=== PATIENT | male | born 1945 | race Caucasian/White ===

== ENCOUNTER 2016-06-06 09:54 | Emergency (ER) | payer OTHER, MEDICARE ==
[~2016-06-06] VITALS: Ht 175.3 cm; Wt 108.0 kg
[~2016-06-06 09:54] MED LIST: CARDURA8 M1 PO; CIPRO 500MG (E500 MG PO; FLEXERIL10 MG PO; FLOMAX(MONOGRA0.4 MG PO; OMEPRAZOLE20 M2 PO; PERCOCET 325 MG1 TA2 PO; SYNTHROID150 MCG PO; TAMIFLU 75MG75 MG PO; TESSALON PERLE100 MG PO
--- NOTE | 2016-06-06 09:57 | ED CARDIAC/CP/PALPITATIONS ---
History of Present Illness General Chief Complaint: Chest Pain Stated Complaint: CP/ HX OF LUNG MASS Source: patient, family Exam Limitations: no limitations Vital Signs & Intake/Output Vital Signs & Intake/Output Vital Signs Date Time Temp Pulse Resp B/P Pulse O2 O2 Flow FiO2 Ox Delivery Rate 06/06 1147 98.7 06/06 1020 96 06/06 1011 98.7 86 18 161/102 97 Room Air 06/06 1010 97 Allergies Coded Allergies: Iodinated Contrast Media - Oral and (Intermediate, SHELLFISH CROSS-SENSITIVITY 06/06/16) shellfish derived (Intermediate, CHOKING 06/06/16) Penicillins (UNKNOWN 06/06/16) Sulfa (Sulfonamide Antibiotics) (Intermediate, DYSURIA 06/06/16) Uncoded Allergies: ENVIROMENTAL (09/17/10) Reconcile Medications Albuterol Sulfate 2.5 MG/3 ML (0.083 %) VIAL.NEB 1 Vial INH/PORTER Q4P PRN DYSPNEA Benzonatate (Tessalon Perle) 100 MG SGL 1 TAB PO TID PRN COUGH Benzonatate 200 MG CAPSULE 1 CAP PO TID PRN COUGH CYCLOBENZAPRINE HCL (Flexeril) 10 MG TABLET 1 TAB PO Q8P PRN PAIN Doxazosin Mesylate 8 MG TABLET 1 TAB PO DAILY BLADDER (Reported) Hydrocodone/Acetaminophen (Vicodin 5-300 MG Tablet) 5 MG-300 MG TABLET 1 TAB PO BID PRN BREAKTHROUGH PAIN Hydrocodone/Acetaminophen (Vicodin 5-300 MG Tablet) 5 MG-300 MG TABLET 1-2 TAB PO Q6 PRN pain Hydrocodone/Acetaminophen (Vicodin 5-300 MG Tablet) 5 MG-300 MG TABLET 1 TAB PO Q6 PRN pain Levofloxacin (Levaquin) 750 MG TABLET 1 TAB PO DAILY BRONCHIECTASIS Levothyroxine Sodium (Synthroid) 0.125 MG TAB 1 TAB PO DAILY AC THYROID ( Reported) Methylprednisolone. (Medrol) 4 MG TAB.DS.PK 1 DP PO AD INFLAMMATION 6 on day 1 then reduce by one tablet daily until gone Omeprazole 40 MG CAPSULE.DR 1 CAP PO DAILY GI (Reported) Oseltamivir Phosphate (Tamiflu 75MG) 75 MG CAP 1 TAB PO BID INFLUENZA OXYCODONE HCL/ACETAMINOPHEN (Percocet 5-325 MG Tablet) 325 MG/5 MG TAB 1 TAB PO Q4-6 PRN PRN PAIN Prednisone 10 MG TABLET 0 PO DAILY BRONCHIECTASIS DAY 1-3: 6 TABS PO QD DAY 4-6: 5 TABS PO QD DAY 7-9: 4 TABS PO QD DAY 10-12: 3 TABS PO QD DAY 13-15: 2 TABS PO QD DAY 16-18: 1 TAB PO QD Robitussin AC (Guaifenesin-Codeine Syrup) 200 MG-20 MG/10 ML LIQUID 10 ML PO Q6 PRN COUGH Tamsulosin Hydrochloride (Flomax) 0.4 MG CAP.ER.24H 1 CAP PO DAILY URINARY RETENTION Triage Nurses Notes Reviewed? yes HPI: This is a 71-year-old male with history of Hamlin's esophagus, enlarged prostate and hypertension presents to the ER for chief complaint of upper respiratory symptoms since last week. He is status post a course of antibiotics and he has been using his inhaler he states without relief. He still has productive yellow sputum. Positive subjective temp. Today he had a CAT scan done and IV [place] because they saw a possibility of a upper lobe mass on chest x -ray. He is post to follow up with Dr. Manuel for the first time outpatient. He presents here because he is not feeling any better and doesn't know if he needs another antibiotic. He complains of right parasternal pain when coughing. He states there is no relief with Robitussin-AC. Past History Medical History Any Pertinent Medical History? see below for history Cardiovascular: hypertension Gastrointestinal: BARRETTS ESOPHAGUS Renal: BPH Endocrine: hypoglycemia Other Medical Hx: BPH Surgical History Surgical History: non-contributory Psychosocial History Who do you live with Spouse Services at Home None What is your primary language South Korean Family History Hx Contributory? No Review of Systems Review of Systems Constitutional: Reports: chills, fever (SUBJECTVE). EENTM: Reports: no symptoms. Respiratory: Reports: cough, short of breath, sputum production. Cardiovascular: Reports: chest pain, peripheral edema. Denies: palpitations. GI: Denies: abdominal pain, nausea, vomiting. Genitourinary: Reports: no symptoms. Musculoskeletal: Reports: no symptoms. Skin: Reports: no symptoms. Neurological/Psychological: Reports: no symptoms. Hematologic/Endocrine: Denies: bruising, bleeding, polyuria, polydipsia. Immunologic/Allergic: Denies: splenectomy. All Other Systems: Reviewed and Negative Physical Exam Physical Exam General Appearance: well developed/nourished, alert, awake, anxious, mild distress, obese Eyes: Bilateral: normal appearance, PERRL, EOMI. Ears, Nose, Throat: normal pharynx, normal ENT inspection, hearing grossly normal Neck: normal inspection, supple, full range of motion Respiratory: normal breath sounds, decreased breath sounds Cardiovascular: regular rate/rhythm Peripheral Pulses: 2+ radial (R), 2+ radial (L) Gastrointestinal: soft, non-tender Neurologic/Psych: awake, alert, oriented x 3 Skin: intact, normal color, warm/dry Core Measures ACS in differential dx? No Severe Sepsis Present: No Septic Shock Present: No Progress Differential Diagnosis: AMI, pneumothorax, pulmonary embolism, PNEUMONIA, LUNG MASS Plan of Care: Orders Procedure Date/time Status LACTIC ACID 06/06 1313 Active RT ED ORDERS 06/06 1013 Complete Telemetry/Community Midwife 06/06 1013 Active RAPID VIRAL INFLUENZA A 06/06 1013 Complete LOWER RESPIRATORY CULTURE 06/06 1013 Active BLOOD CULTURE 06/06 1013 Active TROPONIN LEVEL 06/06 1013 Complete LACTIC ACID 06/06 1013 Complete COMPREHENSIVE METABOLIC PANEL 06/06 1013 Complete CBC WITHOUT DIFFERENTIAL 06/06 1013 Complete EKG 06/06 0955 Active Laboratory Tests 06/06/16 1026: Anion Gap 15, Estimated GFR > 60, BUN/Creatinine Ratio 15.0, Glucose 103 H, Lactic Acid 1.1, Calcium 9.5, Total Bilirubin 1.1, AST 32, ALT 45, Alkaline Phosphatase 85, Troponin I < 0.01, Total Protein 7.9, Albumin 4.3, Globulin 3.6, Albumin/Globulin Ratio 1.2, CBC w Diff NO MAN DIFF REQ, RBC 5.29, MCV 102.5 H, MCH 34.5 H, RDW 13.9, MPV 8.7, Gran % 70.9, Lymphocytes % 10.8 L, Monocytes % 13.8 H, Eosinophils % 4.0, Basophils % 0.5, Absolute Granulocytes 5.1, Absolute Lymphocytes 0.8 L, Absolute Monocytes 1.0 H, Absolute Eosinophils 0.3, Absolute Basophils 0, PUBS MCHC 33.6 Microbiology 06/06 1013 LOWER RESP: Respiratory Culture - ORD 06/06 1013 LOWER RESP: Gram Stain - ORD 06/06 101 BLOOD: Blood Culture - ORD 06/06 101 BLOOD: Blood Culture - RECD 11:30 AM D/W DR MANUEL PATIENT RESULTS/CT SCAN. HAS AN APPOINTMENT NEXT SUNDAY. AGREES WITH PREDNISONE/LEVAQUIN/ALBUTEROL AND PAIN CONTROL. NO PNEUMONIA. POSITIVE BRONCHIECTASIS. (ZEESHAN BYNUM,SUSAN) Diagnostic Imaging: Viewed by Me: CT Scan. Discussed w/RAD: CT Scan. Initial ED EKG: NSR Comments: PATIENT: XAVI HUNT PRESENT AGE: 71 PATIENT ACCOUNT NO: [id number] : 44 LOCATION: [facility] ORDERING PHYSICIAN: OMI GAMINO MD SERVICE DATE: 06/06/16 EXAM TYPE: CAT - CT CHEST WO IV CONTRAST EXAMINATION: CT CHEST WITHOUT CONTRAST CLINICAL INFORMATION: History of cough. Possible left upper lobe mass on chest radiograph. COMPARISON: CXR from 05/30/2016 TECHNIQUE: Multidetector volumetric CT imaging of the chest was done. Axial MIP volume rendering provided. Sagittal and coronal reformatted images were obtained. DLP: 791 mGy-cm. FINDINGS: Lungs and pleura: Trachea and central airways are widely patent and normal in caliber. No endobronchial nodule or mucous plugging. There is mild cylindrical bronchiectasis of the middle lobe, right lower lobe and inferior lingula. No pulmonary mass, consolidation or pleural effusion. Mediastinum: The heart size is normal. Pulmonary arteries are normal in caliber. There is mild atherosclerotic calcification of the thoracic aorta. At the level of the right pulmonary artery, the ascending thoracic aorta is 4.2 cm transverse, 4.3 cm AP. The aortic root is 3.8 cm. At the mid arch level, thoracic aorta measures 3 cm transverse. The proximal and distal descending aorta measure 3.4 cm and 3.1 cm short axis dimension, respectively. Lymphatics: No pathologic sized axillary, hilar or mediastinal lymph nodes. Upper abdomen: The adrenal glands are normal. There are diverticula of the visualized colon. Osseous structures: No suspicious lesions within the degenerated spine. There is flowing anterior ligament ossification of the thoracic spine. IMPRESSION: 1. Mild cylindrical bronchiectasis of the right middle lobe, lingula and right lower lobe. 2. No evidence of pneumonia, pulmonary mass or lymphadenopathy. 3. The dilated ascending thoracic aorta measures up to 4.3 cm AP diameter. DICTATED BY: BHAVYA VELASQUEZ MD DATE/TIME DICTATED:06/06/161039 GASTROENTEROLOGIST:NICHOLAS DATE/TIME TRANSCRIBED:06/06/161039 CONFIDENTIAL, DO NOT COPY WITHOUT APPROPRIATE AUTHORIZATION. <Electronically signed in Other Vendor System> SIGNED BY: BHAVYA VELASQUEZ MD 06/06/16 1050 Departure Departure Time of Disposition: 1128 Disposition: HOME OR SELF CARE Condition: Stable Clinical Impression Primary Impression: Bronchiectasis Referrals: STEVENSON BYNUM,OMI Corey (PCP/Family) ANGELITO MANUEL MD Additional Instructions: TAKE THE LEVAQUIN, MEDROL DOSE PACK, ROBITUSSIN AC, ALBUTEROL AND VICODIN DIRECTED. FOLLOW UP WITH YOUR APPOINTMENT WITH DR MANUEL IN THE OFFICE. RETURN TO THE ER FOR ANY CHANGING OR WORSENING SYMPTOMS. Departure Forms: Customer Survey General Discharge Information Prescriptions: Current Visit Scripts Methylprednisolone. (Medrol) 1 DP PO AD #1 DP 6 on day 1 then reduce by one tablet daily until gone Levofloxacin (Levaquin) 1 TAB PO DAILY #7 TAB Robitussin AC (Guaifenesin-Codeine Syrup) 10 ML PO Q6 PRN COUGH #150 ML Albuterol Sulfate 1 Vial INH/PORTER Q4P PRN DYSPNEA #1 BOX Hydrocodone/Acetaminophen (Vicodin 5-300 MG Tablet) 1 TAB PO BID PRN BREAKTHROUGH PAIN #10 TAB Critical Care Note Critical Care Note Critical Care Time: non-applicable
[2016-06-06 10:48] LABS: ABSOLUTE BASOPHIL COUNT 0 /CUMM (0.0-0.2); ABSOLUTE EOSINOPHIL COUNT 0.3 /CUMM (0.0-0.7); ABSOLUTE GRANULOCYTE CT 5.1 /CUMM (1.4-6.5); ABSOLUTE LYMPH COUNT 0.8 /CUMM (1.2-3.4); BASOPHIL % 0.5 % (0.0-2.0); GRANULOCYTE % 70.9 % (42.2-75.2); HEMATOCRIT 54.3 % (42-52); MEAN CORPUSCULAR HGB 34.5 PG (27.0-31.0); MEAN CORPUSCULAR HGB CONC 33.6 G/DL (33.0-37.0); MEAN CORPUSCULAR VOLUME 102.5 FL (80.0-94.0); MEAN PLATELET VOLUME 8.7 FL (7.4-10.4); PLATELET COUNT 175 /CUMM (130-400); RBC DISTRIBUTION WIDTH 13.9 % (11.5-14.5); RED BLOOD CELL CT 5.29 /CUMM (4.70-6.10); WHITE BLOOD CELL COUNT 7.2 /CUMM (4.8-10.8)
[2016-06-06] MEDS ORDERED: VICODIN 5-3001 EACH PO (11:40)
[2016-06-06] MEDS ORDERED: ALBUTEROL2.5 MG/3 M INH/SOL (11:40)
[2016-06-06] MEDS ORDERED: GUAIFENESIN-COD10 ML PO (11:40)
[2016-06-06] MEDS ORDERED: LEVAQUIN750 M1 PO (11:40)
[2016-06-06] MEDS ORDERED: MEDROL4 M2 PO (11:40)
[2016-06-06 11:57] VITALS: BP 130/98
[2016-11-02] MEDS ORDERED: LEVOTHYROXINE125 MCG PO (10:13)
== END 2016-06-06 12:38 ==
LOC: ERH 09:54
PROVIDERS: Emergency Medicine
DX: J47.9 Bronchiectasis, uncomplicated (principal); R07.9 Chest pain, unspecified
CPT/HCPCS: 1263; 87040; 87070; 87804; 87804-59; 93005; 93010; 96374; 96375; J0131; J1885; J2930

== ENCOUNTER 2016-06-08 07:31 | Emergency (ER) | payer OTHER, MEDICARE ==
[~2016-06-08] VITALS: Ht 175.3 cm; Wt 108.0 kg
[~2016-06-08 07:31] MED LIST changes: +ALBUTEROL2.5 MG/3 M INH/SOL; +GUAIFENESIN-COD10 ML PO; +LEVAQUIN750 M1 PO; +MEDROL4 M2 PO; +VICODIN 5-3001 EACH PO
[2016-06-08 07:50] VITALS: BP 167/99
--- NOTE | 2016-06-08 08:24 | ED GENERAL ADULT ---
History of Present Illness General Chief Complaint: General Adult Stated Complaint: ?BRONCHIECTASIS. SEEN HERE 06/06 Source: patient Exam Limitations: no limitations Allergies Coded Allergies: Iodinated Contrast Media - Oral and (Intermediate, SHELLFISH CROSS-SENSITIVITY 06/06/16) shellfish derived (Intermediate, CHOKING 06/06/16) Penicillins (UNKNOWN 06/06/16) Sulfa (Sulfonamide Antibiotics) (Intermediate, DYSURIA 06/06/16) Uncoded Allergies: ENVIROMENTAL (09/17/10) Reconcile Medications Albuterol Sulfate 2.5 MG/3 ML (0.083 %) VIAL.NEB 1 Vial INH/PORTER Q4P PRN DYSPNEA Benzonatate (Tessalon Perle) 100 MG SGL 1 TAB PO TID PRN COUGH Benzonatate 200 MG CAPSULE 1 CAP PO TID PRN COUGH CYCLOBENZAPRINE HCL (Flexeril) 10 MG TABLET 1 TAB PO Q8P PRN PAIN Doxazosin Mesylate 8 MG TABLET 1 TAB PO DAILY BLADDER (Reported) Hydrocodone/Acetaminophen (Vicodin 5-300 MG Tablet) 5 MG-300 MG TABLET 1 TAB PO BID PRN BREAKTHROUGH PAIN Hydrocodone/Acetaminophen (Vicodin 5-300 MG Tablet) 5 MG-300 MG TABLET 1-2 TAB PO Q6 PRN pain Hydrocodone/Acetaminophen (Vicodin 5-300 MG Tablet) 5 MG-300 MG TABLET 1 TAB PO Q6 PRN pain Levofloxacin (Levaquin) 750 MG TABLET 1 TAB PO DAILY BRONCHIECTASIS Levothyroxine Sodium (Synthroid) 0.125 MG TAB 1 TAB PO DAILY AC THYROID ( Reported) Methylprednisolone. (Medrol) 4 MG TAB.DS.PK 1 DP PO AD INFLAMMATION 6 on day 1 then reduce by one tablet daily until gone Omeprazole 40 MG CAPSULE.DR 1 CAP PO DAILY GI (Reported) Oseltamivir Phosphate (Tamiflu 75MG) 75 MG CAP 1 TAB PO BID INFLUENZA OXYCODONE HCL/ACETAMINOPHEN (Percocet 5-325 MG Tablet) 325 MG/5 MG TAB 1 TAB PO Q4-6 PRN PRN PAIN Prednisone 10 MG TABLET 0 PO DAILY BRONCHIECTASIS DAY 1-3: 6 TABS PO QD DAY 4-6: 5 TABS PO QD DAY 7-9: 4 TABS PO QD DAY 10-12: 3 TABS PO QD DAY 13-15: 2 TABS PO QD DAY 16-18: 1 TAB PO QD Robitussin AC (Guaifenesin-Codeine Syrup) 200 MG-20 MG/10 ML LIQUID 10 ML PO Q6 PRN COUGH Tamsulosin Hydrochloride (Flomax) 0.4 MG CAP.ER.24H 1 CAP PO DAILY URINARY RETENTION Triage Note: C/O COUGH X 1 MONTH, WITH RIGHT SIDED CHEST PAIN RADIATING TO BACK. SEEN HERE ON 06/06 FOR SXS. HAD OUT PT CT SCAN ON 06/06, DXD WITH BRONCHIECTASIS. ALSO C/O SOB. EKG DONE ON ARRIVAL. Triage Nurses Notes Reviewed? yes HPI: Patient is a 71 year old male presents complaining of cough x 1 month, right sided chest pain and back pain x 1 week. Patient had an outpatient CT scan 2 days ago showing bronchietasis. Patient was seen in the emergency department 2 days ago and placed on medrol dose david, robitussin, vicodin, levofloxacin and albuterol nebulizer. Pain is sharp, occurs only when coughing and is 10/10 when it occurs, 0/10 when not coughing. No improvement with these medications. Cough worsens with lying flat. Subjective fevers intermittently. Associated nasal congestion and rhinorrhea, went from clear to green tint over the past 2 days. (ALIS ADAMS) Vital Signs & Intake/Output Vital Signs & Intake/Output Vital Signs Date Time Temp Pulse Resp B/P Pulse O2 O2 Flow FiO2 Ox Delivery Rate 06/08 0908 93 06/08 0750 99.0 100 22 167/99 94 Room Air Past History Travel History Traveled to [place] past 21 day No Medical History Any Pertinent Medical History? see below for history Neurological: NONE EENT: NONE Cardiovascular: hypertension Respiratory: bronchiectasis Gastrointestinal: BARRETTS ESOPHAGUS Hepatic: NONE Renal: benign prost hyperplasia Musculoskeletal: NONE Psychiatric: NONE Endocrine: hypoglycemia Other Medical Hx: BPH History of CDIFF: No Isolation History: Standard Surgical History Surgical History: non-contributory Psychosocial History Who do you live with Spouse Services at Home None What is your primary language Bhutanese Tobacco Use: Quit >30 days ago ETOH Use: occasional use Family History Hx Contributory? No (ALIS ADAMS) Review of Systems Review of Systems Constitutional: Reports: fever (subjective). Denies: chills. EENTM: Reports: nasal congestion. Respiratory: Reports: see HPI. Cardiovascular: Reports: chest pain (right sided with cough). GI: Denies: abdominal pain, nausea, vomiting. Genitourinary: Reports: no symptoms. Musculoskeletal: Reports: back pain. Skin: Reports: no symptoms. Neurological/Psychological: Reports: no symptoms. Hematologic/Endocrine: Reports: no symptoms. Immunologic/Allergic: Reports: no symptoms. (ALIS ADAMS) Physical Exam Physical Exam General Appearance: alert, awake Head: atraumatic, normal appearance, no sinus tenderness Eyes: Bilateral: normal appearance, PERRL, EOMI. Ears, Nose, Throat: normal pharynx, hearing grossly normal, nasal congestion Neck: normal inspection, supple, full range of motion Respiratory: chest non-tender, no respiratory distress, lungs clear Cardiovascular: regular rate/rhythm (no appreciable murmur) Gastrointestinal: soft, non-tender Back: normal inspection, normal range of motion Extremities: normal inspection, normal capillary refill, normal range of motion, no edema Neurologic/Psych: no motor/sensory deficits, awake, alert, oriented x 3, normal gait, normal mood/affect Skin: intact, normal color, warm/dry Lymphatic: no anterior cervical maria Core Measures ACS in differential dx? Yes ASA ordered for poss ACS? No-ACS ruled out CVA/TIA Diagnosis: No Severe Sepsis Present: No Septic Shock Present: No (ALIS ADAMS) Progress Differential Diagnoses I considered the following diagnoses in my evaluation of the patient: Bronchiectasis, pneumonia, aortic dissection, pulmonary embolism, acute coronary syndrome Initial ED EKG: normal sinus rhythm 98 bpm left axis deviation, left ventricular hypertrophy, no acute changes from previous EKG Prior EKG: unchanged (ALIS ADAMS) Plan of Care: Orders Procedure Date/time Status EKG 06/08 0734 Active 0840: Discussed with Dr. Raymundo: recommends increasing corticosteroids to 60mg then decreasing by 10 mg every 3 days. Start on Benzonatate 200mg TID. Continue other medications. Will take time for symptoms to improve, can see in office on Sunday as scheduled. Patient took his morning Medrol Dose David dose this morning, additional 40 mg of Prednisone ordered and Benzonatate ordered. 0850: Discussed with and seen by Dr. Wharton. Discussed with patient my conversation with Dr. Raymnudo. Patient nontoxic appearing, ambulating without significant respiratory distress. 0910: Discussed with patient follow-up and results of his CT scan from 2 days ago. Discussed the thoracic aneurysm that was seen. Patient instructed to follow up with his PMD regarding the aortic findings and with Dr. Raymundo on Sunday. Patient's chest pain is only with cough has been occurring for 1 week. Very low suspicion aortic dissection. Appears stable for discharge (ALIS ADAMS) Departure Departure Time of Disposition: 910 Disposition: HOME OR SELF CARE Condition: Stable Clinical Impression Primary Impression: Bronchiectasis Qualifiers: Bronchiectasis type: with acute exacerbation Qualified Code: J47.1 - Bronchiectasis with (acute) exacerbation Referrals: STEVENSON BYNUM,OMI Corey (PCP/Family) Additional Instructions: Use the albuterol nebulizer every 4 hours during this acute exacerbation. Continue taking the cough medication and antibiotics as previously directed. Stop taking the Medrol Dosepak and start taking prednisone as directed. Follow- up with Dr. Raymundo on Sunday as scheduled. Return to the ER if your breathing is worsening. Departure Forms: Customer Survey General Discharge Information Prescriptions: Current Visit Scripts Hydrocodone/Acetaminophen (Vicodin 5-300 MG Tablet) 1-2 TAB PO Q6 PRN pain #10 TAB Prednisone 0 PO DAILY #63 TAB DAY 1-3: 6 TABS PO QD DAY 4-6: 5 TABS PO QD DAY 7-9: 4 TABS PO QD DAY 10-12: 3 TABS PO QD DAY 13-15: 2 TABS PO QD DAY 16-18: 1 TAB PO QD Benzonatate 1 CAP PO TID PRN COUGH #30 CAP Hydrocodone/Acetaminophen (Vicodin 5-300 MG Tablet) 1 TAB PO Q6 PRN pain #10 TAB (ALIS ADAMS) PA/TRAUMA COORDINATOR Co-Sign Statement Statement: ED Attending supervision documentation- [X] I saw and evaluated the patient. I have also reviewed all the pertinent lab results and diagnostic results. I agree with the findings and the plan of care as documented in the PA's/TRAUMA COORDINATOR's documentation. [] I have reviewed the ED Record and agree with the PA's/TRAUMA COORDINATOR's documentation. [] Additions or exceptions (if any) to the PAs/TRAUMA COORDINATOR's note and plan are summarized below: [] (DAVID BYNUM,MAMI Barrientos) Critical Care Note Critical Care Note Critical Care Time: non-applicable (TYRONE FRAGA,ALIS)
[2016-06-08] MEDS ORDERED: PREDNISONE10 M2 PO (09:11)
[2016-06-08] MEDS ORDERED: BENZONATATE200 M1 PO (09:11)
[2016-06-08] MEDS ORDERED: VICODIN 5-3001 EACH PO ×2 (09:11→09:19)
[2016-11-02] MEDS ORDERED: LEVOTHYROXINE125 MCG PO (10:13)
== END 2016-06-08 09:11 ==
LOC: ERH 07:31
DX: R07.9 Chest pain, unspecified (principal); J47.9 Bronchiectasis, uncomplicated; Z87.891 Personal history of nicotine dependence
CPT/HCPCS: 1263; 93005; 93010

== ENCOUNTER 2016-10-31 12:00 | Emergency (ER) | payer OTHER, MEDICARE ==
[~2016-10-31] VITALS: Ht 175.3 cm; Wt 105.7 kg
[~2016-10-31 12:00] MED LIST changes: +BENZONATATE200 M1 PO; +PREDNISONE10 M2 PO
[2016-10-31] MEDS ORDERED: LISINOPRIL10 M1 PO (12:57)
[2016-10-31] MEDS ORDERED: DEPO-TESTO200 MG/1 M INJ (12:58)
[2016-10-31] MEDS ORDERED: GABAPENTIN300 M2 PO (13:00)
[2016-10-31] MEDS ORDERED: BREO ELLIPTA 11 EACH PO (13:01)
[2016-10-31] MEDS ORDERED: RAPAFLO8 M1 PO (13:04)
--- NOTE | 2016-10-31 13:16 | ED GI/GU/ABDOMINAL COMPLAINT ---
History of Present Illness General Chief Complaint: Male Genitourinary Problems Stated Complaint: ENLARGED PROSTATE Source: patient Exam Limitations: no limitations Vital Signs & Intake/Output Vital Signs & Intake/Output Vital Signs Date Time Temp Pulse Resp B/P B/P Pulse O2 O2 Flow FiO2 Mean Ox Delivery Rate 10/31 1406 98.2 88 18 130/82 95 Room Air 10/31 1212 98.5 108 18 162/110 97 Room Air Allergies Coded Allergies: NSAIDS (Non-Steroidal Anti-Inflamma (Severe, BLEEDING 10/31/16) Iodinated Contrast- Oral and IV Dye (Iodinated Contrast Media - Oral and) ( Intermediate, SHELLFISH CROSS-SENSITIVITY 06/06/16) shellfish derived (Intermediate, CHOKING 06/06/16) Penicillins (UNKNOWN 06/06/16) Sulfa (Sulfonamide Antibiotics) (Intermediate, DYSURIA 06/06/16) Uncoded Allergies: ENVIROMENTAL (09/17/10) Reconcile Medications Ciprofloxacin HCl (Cipro) 500 MG TABLET 1 TAB PO BID URINE/KIDNEY INFECTION Fluticasone/Vilanterol (Breo Ellipta 100-25 Mcg INH) 100 MCG-25 MCG/DOSE BLST.W.DEV 1 PUFF PO DAILY BREATHING PROBLEMS (Reported) Gabapentin 300 MG CAPSULE 1 CAP PO TID UNKNOWN (Reported) Levothyroxine Sodium 125 MCG TABLET 1 TAB PO DAILY HYPOTHYROID (Reported) Lisinopril 10 MG TABLET 1 TAB PO DAILY HEART (Reported) Methylprednisolone. (Medrol) 4 MG TAB.DS.PK 1 DP PO AD INFLAMMATION 6 on day 1 then reduce by one tablet daily until gone Metronidazole (Metrogel) 1 % GEL.W.PUMP 1 LOLY TOP QPM ROSACEA (Reported) Omeprazole 20 MG CAPSULE.DR 1 CAP PO DAILY GI (Reported) Silodosin (Rapaflo) 8 MG CAPSULE 1 CAP PO DAILY BPH (Reported) Sulfacetamide Sodium (Klaron) (Unknown Strength) SUSPENSION (Unknown Dose) TOP QAM ROSACEA (Reported) Testosterone Cypionate (Depo-Testosterone) 200 MG/ML VIAL 200 MG INJ Q2W HRT (Reported) Triage Note: PT STATES HE HAS BEEN UNABLE TO URINATE X 4 HOURS, BUT IS VOIDING IN SMALL AMOUNTS. C/O LOWER ABDOMINAL PAIN AND PRESSURE. Triage Nurses Notes Reviewed? yes Onset: Gradual Duration: hour(s):, continues in ED, getting worse Quality/Severity: severe Location: suprapubic HPI: Patient presents for evaluation of acute urinary retention secondary to enlarged prostate. Patient's symptoms began gradually today with worsening suprapubic fullness and pain and an inability to urinate. Past History Travel History Traveled to [place] past 21 day No Medical History Any Pertinent Medical History? see below for history Neurological: NONE EENT: NONE Cardiovascular: hypertension Respiratory: bronchiectasis Gastrointestinal: BARRETTS ESOPHAGUS Hepatic: NONE Renal: benign prost hyperplasia Musculoskeletal: NONE Psychiatric: NONE Endocrine: hypoglycemia Other Medical Hx: BPH History of CDIFF: No Surgical History Surgical History: non-contributory Psychosocial History Who do you live with Spouse Services at Home None What is your primary language Ivorian Tobacco Use: Quit >30 days ago ETOH Use: occasional use Family History Hx Contributory? No Review of Systems Review of Systems Constitutional: Reports: no symptoms. EENTM: Reports: no symptoms. Respiratory: Reports: no symptoms. Cardiovascular: Reports: no symptoms. GI: Reports: no symptoms. Genitourinary: Reports: see HPI. Musculoskeletal: Reports: no symptoms. Skin: Reports: no symptoms. Neurological/Psychological: Reports: no symptoms. Hematologic/Endocrine: Reports: no symptoms. Immunologic/Allergic: Reports: no symptoms. All Other Systems: Reviewed and Negative Physical Exam Physical Exam Gastrointestinal: see below Comments: Patient evaluated after placement of Vasques catheter Gen.: Well-nourished, well-developed, no acute respiratory distress. Head: Normocephalic, atraumatic. Eyes: Normal inspection bilaterally Ears: Normal inspection bilaterally Nose: Normal inspection Throat/mouth : Moist mucosa Neck: Supple, full range of motion, no goiter Heart: Regular rate and rhythm, no murmurs rubs or gallops Lungs: Clear to auscultation bilaterally with normal air entry Chest: Nontender Back: Normal range of motion Abdomen: Soft, nontender, nondistended, normal bowel sounds Extremities: Normal range of motion grossly, equal radial pulses, no cyanosis clubbing or edema Neurologic: Cranial nerves grossly intact, speech is clear Skin: warm and dry Psychiatric: Calm, cooperative, no apparent delusions or hallucinations Core Measures ACS in differential dx? No Severe Sepsis Present: No Septic Shock Present: No Progress Differential Diagnosis: prostate enlargement, uti Plan of Care: Orders Procedure Date/time Status Add-on Test (ER Only) 10/31 1316 Active URINALYSIS 10/31 1255 Complete Vasques, Insertion/Removal/Asses 10/31 1239 Active CULTURE,URINE 10/31 1239 Active Laboratory Tests 10/31/16 1255: Urinalysis LIGHT H, Urine Color YEL, Urine Clarity CLEAR, Urine pH 7.0, Ur Specific [place] 1.010, Urine Protein NEG, Urine Ketones NEG, Urine Nitrite NEG, Urine Bilirubin NEG, Urine Urobilinogen 0.2, Ur Leukocyte Esterase NEG, Ur Microscopic SEDIMENT EXAMINED, Urine RBC 10-15 H, Urine WBC RARE, Ur Epithelial Cells TRANS H, Urine Mucus FEW, Urine Hemoglobin MOD H, Urine Glucose NEG Microbiology 10/31 1255 URINE ROUT: Urine Culture - RECD Initial ED EKG: none Comments: Patient's case discussed with Dr. Benavidez who will see the patient in his office on Sunday at 8 AM. Departure Departure Disposition: HOME OR SELF CARE Condition: Stable Clinical Impression Primary Impression: Urinary retention Referrals: STEVENSON BYNUM,OMI Corey (PCP/Family) Additional Instructions: Keep the Vasques in place until you see Dr. Benavidez and follow-up on Sunday at 8 AM. Cipro as prescribed. Notify your primary care doctor this emergency department visit and treatment plan. Return if any concerns or sudden worsening. Thank you for choosing the [facility] Emergency Department for your care. It was a pleasure to serve you today. Bandar Wharton M.D. [facility] Departure Forms: Customer Survey General Discharge Information Prescriptions: Current Visit Scripts Ciprofloxacin HCl (Cipro) 1 TAB PO BID #14 TAB
[2016-10-31] MEDS ORDERED: CIPRO500 M1 PO (14:52)
[2016-10-31 15:13] VITALS: BP 134/80
[2016-11-01] MEDS ORDERED: METROGEL55 GM TOP (19:25)
[2016-11-01] MEDS ORDERED: [UNRECOGNIZED DRUG - OTHER] TOP (19:26)
[2016-11-02] MEDS ORDERED: LEVOTHYROXINE125 MCG PO (10:13)
== END 2016-10-31 15:14 ==
LOC: ERH 12:00
DX: N40.1 Benign prostatic hyperplasia with lower urinary tract symptoms (principal); R33.9 Retention of urine, unspecified
CPT/HCPCS: 81001; 87086

== ENCOUNTER 2016-11-01 17:42 | Emergency (ER) | payer OTHER, MEDICARE ==
[~2016-11-01] VITALS: Ht 175.3 cm; Wt 104.8 kg
[~2016-11-01 17:42] MED LIST changes: +BREO ELLIPTA 11 EACH PO; +CIPRO500 M1 PO; +DEPO-TESTO200 MG/1 M INJ; +GABAPENTIN300 M2 PO; +LISINOPRIL10 M1 PO; +RAPAFLO8 M1 PO
--- NOTE | 2016-11-01 19:09 | ED GENERAL ADULT ---
History of Present Illness General Chief Complaint: Male Genitourinary Problems Stated Complaint: SENT BY DR BENAVIDEZ Source: patient Exam Limitations: no limitations Vital Signs & Intake/Output Vital Signs & Intake/Output Vital Signs Date Time Temp Pulse Resp B/P B/P Pulse O2 O2 Flow FiO2 Mean Ox Delivery Rate 11/01 2016 97.8 81 18 155/88 98 Room Air 11/01 1746 98.0 98 18 158/98 96 Room Air ED Intake and Output 11/02 0000 11/01 1200 Intake Total Output Total Balance Patient 231 lb Weight Allergies Coded Allergies: NSAIDS (Non-Steroidal Anti-Inflamma (Severe, BLEEDING 10/31/16) Iodinated Contrast- Oral and IV Dye (Iodinated Contrast Media - Oral and) ( Intermediate, SHELLFISH CROSS-SENSITIVITY 06/06/16) shellfish derived (Intermediate, CHOKING 06/06/16) Penicillins (UNKNOWN 06/06/16) Sulfa (Sulfonamide Antibiotics) (Intermediate, DYSURIA 06/06/16) Uncoded Allergies: ENVIROMENTAL (09/17/10) Reconcile Medications Ciprofloxacin HCl (Cipro) 500 MG TABLET 1 TAB PO BID URINE/KIDNEY INFECTION Fluticasone/Vilanterol (Breo Ellipta 100-25 Mcg INH) 100 MCG-25 MCG/DOSE BLST.W.DEV 1 PUFF PO DAILY BREATHING PROBLEMS (Reported) Gabapentin 300 MG CAPSULE 1 CAP PO TID UNKNOWN (Reported) Levothyroxine Sodium (Synthroid) 150 MCG TABLET 1 TAB PO DAILY AC THYROID ( Reported) Lisinopril 10 MG TABLET 1 TAB PO DAILY HEART (Reported) Methylprednisolone. (Medrol) 4 MG TAB.DS.PK 1 DP PO AD INFLAMMATION 6 on day 1 then reduce by one tablet daily until gone Metronidazole (Metrogel) 1 % GEL.W.PUMP 1 LOLY TOP QPM ROSACEA (Reported) Omeprazole 20 MG CAPSULE.DR 1 CAP PO DAILY GI (Reported) Silodosin (Rapaflo) 8 MG CAPSULE 1 CAP PO DAILY BPH (Reported) Sulfacetamide Sodium (Klaron) (Unknown Strength) SUSPENSION (Unknown Dose) TOP QAM ROSACEA (Reported) Testosterone Cypionate (Depo-Testosterone) 200 MG/ML VIAL 200 MG INJ Q2W HRT (Reported) Triage Note: PT SENT TO ER FOR ADMISSION BY DR BENAVIDEZ AND TO HAVE CYSTOSCOPY TOMORROW. PT WAS SEEN HERE YESTERDAY DUE TO HE WAS UNABLE TO VOID AND HAD A TURNER PLACED , PT STATES THAT HE HAS BEEN HAVE PAIN IN PENIS AND LOW ABD CRAMPING THAT HAS BEEN CONSTANT SINCE YESTERDAY AM. URINE NOTED IN LEG BAG AND PT STATES THAT HE HAS HAD TO EMPTY IT. Triage Nurses Notes Reviewed? yes HPI: 71-year-old male with a history of hypertension, bronchiectasis, Hamlin's esophagus, BPH sent in by Dr. Benavidez for admission due to episode of severe urethral spasm during office visit today. He is scheduled to have cystoscopy tomorrow. Patient was seen in the ED yesterday for urinary retention, penile pain, lower abdominal cramping, had Turner placed with resolution of urinary retention. Patient reports that his penile pain and lower abdominal cramping continue, but have significantly been improving since the turner was placed. Patient reports that his Turner continues to actively drain clear yellow urine, with no signs of hematuria. Denies fevers, nausea, vomiting. Pt requesting to go home as he now feels comfortable, and his spasms are becoming less frequent and less intense. (MICHAEL SKELTON,BRANDY) Past History Travel History Traveled to [place] past 21 day No Medical History Any Pertinent Medical History? see below for history Neurological: NONE EENT: NONE Cardiovascular: hypertension Respiratory: bronchiectasis Gastrointestinal: BARRETTS ESOPHAGUS Hepatic: NONE Renal: benign prost hyperplasia Musculoskeletal: NONE Psychiatric: NONE Endocrine: hypoglycemia Other Medical Hx: BPH History of CDIFF: No Surgical History Surgical History: non-contributory Psychosocial History Who do you live with Spouse Services at Home None What is your primary language Tristanian Tobacco Use: Never used ETOH Use: denies use Illicit Drug Use: denies illicit drug use Family History Hx Contributory? No (MICHAEL SKELTON,BRANDY) Review of Systems Review of Systems Constitutional: Reports: no symptoms. Respiratory: Reports: no symptoms. Cardiovascular: Reports: no symptoms. GI: Reports: abdominal pain. Denies: constipation, diarrhea, nausea, vomiting. Genitourinary: Denies: discharge, dysuria, frequency, hematuria, pain, urgency. Musculoskeletal: Reports: no symptoms. Neurological/Psychological: Reports: no symptoms. (MICHAEL SKELTON,BRANDY) Physical Exam Physical Exam General Appearance: well developed/nourished, no apparent distress, comfortable Head: atraumatic Respiratory: normal breath sounds, lungs clear Cardiovascular: regular rate/rhythm Gastrointestinal: normal bowel sounds, soft, non-tender, Turner in place and draining clear yellow fluid, no hematuria. Back: No CVAT Neurologic/Psych: awake, alert, oriented x 3 Core Measures ACS in differential dx? No CVA/TIA Diagnosis: No Severe Sepsis Present: No Septic Shock Present: No (BRANDY RODRIGUEZ PA-C) Progress Differential Diagnoses I considered the following diagnoses in my evaluation of the patient: [Urinary retention versus urethral spasm versus UTI versus BPH versus bladder malignancy] Plan of Care: Spoke to Dr. Benavidez who is in agreement with plan to send patient home as his pain has significantly improved, and is requesting to go home. Patient will call Dr. Benavidez's office at 8 AM tomorrow morning to inquire about the time for his cystoscopy as it is being done as an add-on. Instructed to return to the ED sooner for any new or worsening symptoms. Initial ED EKG: none (BRANDY RODRIGUEZ PA-C) Departure Departure Disposition: HOME OR SELF CARE Condition: Stable Clinical Impression Primary Impression: Urinary retention Secondary Impressions: Urethral spasm Referrals: STEVENSON BYNUM,OMI Corey (PCP/Family) Additional Instructions: Make sure to call Dr. Benavidez's office tomorrow at 8 AM to inquire about the time for your cystoscopy. Return to the ED for any new or worsening symptoms. Departure Forms: Customer Survey General Discharge Information (BRANDY RODRIGUEZ PA-C) PA/MUCKER COFFERDAM Co-Sign Statement Statement: ED Attending supervision documentation- [X] I saw and evaluated the patient. I have also reviewed all the pertinent lab results and diagnostic results. I agree with the findings and the plan of care as documented in the PA's/MUCKER COFFERDAM's documentation. [] I have reviewed the ED Record and agree with the PA's/MUCKER COFFERDAM's documentation. [] Additions or exceptions (if any) to the PAs/MUCKER COFFERDAM's note and plan are summarized below: [] (MAMI MARCELO DO) Critical Care Note Critical Care Note Critical Care Time: non-applicable (BRANDY RODRIGUEZ PA-C)
[2016-11-01] MEDS ORDERED: METROGEL55 GM TOP (19:25)
[2016-11-01] MEDS ORDERED: [UNRECOGNIZED DRUG - OTHER] TOP (19:26)
[2016-11-01 20:17] VITALS: BP 155/88
[2016-11-02] MEDS ORDERED: LEVOTHYROXINE125 MCG PO (10:13)
== END 2016-11-01 20:30 ==
LOC: ERH 17:42
DX: R33.9 Retention of urine, unspecified (principal); N35.9 Urethral stricture, unspecified

== ENCOUNTER → 2016-11-02 | Day surgery (SDC) | payer OTHER, MEDICARE ==
[~2016-11-02] VITALS: Ht 175.3 cm; Wt 104.3 kg
[~2016-11-02] MED LIST changes: +LEVOTHYROXINE125 MCG PO; +METROGEL55 GM TOP; +[UNRECOGNIZED DRUG - OTHER] TOP
--- NOTE | 2016-11-07 12:01 | Operative Report ---
Operative/Inv Procedure Report Surgery Date: 11/02/16 Name of Procedure: cystsocopy: fulguration of prostate bleeders. Pre-Operative Diagnosis: hematuria Post-Operative Diagnosis: same Estimated Blood Loss: scant Surgeon/[employer]: IVY MORALES MD Anesthesia: moderate sedation Drains: 18 fr carey Complications: none Operative/Procedure Note Note: The patient was taken to the operative room and placed on the OR table in supine position. Timeout was performed in order to confirm the patient's identity, procedure, anesthesia, antibiotics, as well as any other pertinent information. After adequate anesthesia, and antibiotics, the patient was then placed lithotomy stirrups draped and prepped in the usual surgical fashion. A 22 [place] cystoscope sheath with a 30 angle lens was inserted into the urethra and advanced into the bladder without difficulty. The prostate was noted to have a narrow channel, with hypervascularity consistent with BPH. Spot cauterization of bleeding vessels was performed using a TUR loop, using coag current. Once hemostasis was achieved, the cystoscope was advanced into the bladder. The bladder was noted to be mild to moderately trabeculated, with no evidence of tumor, no evidence of stone. The bladder was then hydrodistended 2 with the irrigation fluid at 40 cm above the symphysis pubis. No evidence of tumor, increased petechiae, nor Hunner's ulceration was noted. Both ureteral orifices had clear reflux in their orthotopic position. No terminal bleed with drainage. Bladder capacity was normal. The bladder was then drained and the cystoscope was removed under direct visualization. The patient tolerated procedure well and was taken to recovery room in satisfactory condition. Discharge Disposition: PACU CC: IVY MORALES MD
== END ==
LOC: STS 07:00
DX: R31.0 Gross hematuria (principal); N40.0 Benign prostatic hyperplasia without lower urinary tract symptoms; N32.89 Other specified disorders of bladder; E03.9 Hypothyroidism, unspecified; I71.4 Abdominal aortic aneurysm, without rupture; K21.9 Gastro-esophageal reflux disease without esophagitis; J45.909 Unspecified asthma, uncomplicated; Z68.35 Body mass index [BMI] 35.0-35.9, adult
CPT/HCPCS: 36415; 93005; 93010; J2250; J3010